=== PATIENT | male | born 1990 | race Caucasian/White ===

== ENCOUNTER 2016-08-08 13:11 | Emergency (ER) | payer OTHER ==
[2016-08-08] MEDS ORDERED: OXYCODONE-ACETAMINOPHEN 5-325 MG TABLET PO ONE (14:16)
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
[2016-08-08 15:53] VITALS: BP 121/65
== END 2016-08-08 15:51 | disposition home or self-care (01) ==
LOC: ER 13:11
PROC: 2W38X1Z Immobilization of Right Upper Extremity using Splint (ICD-10-PCS; principal; 2016-08-08)
DX: S40.029A Contusion of unspecified upper arm, initial encounter (principal); S53.401A Unspecified sprain of right elbow, initial encounter; S90.31XA Contusion of right foot, initial encounter; M25.521 Pain in right elbow; M79.671 Pain in right foot; F17.200 Nicotine dependence, unspecified, uncomplicated; X58.XXXA Exposure to other specified factors, initial encounter
CPT/HCPCS: 99284

== ENCOUNTER 2016-08-14 14:37 | Emergency (ER) | payer OTHER ==
[2016-08-14 14:42] VITALS: BP 115/76
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
== END 2016-08-14 15:15 | disposition home or self-care (01) ==
LOC: ER 14:37
DX: M25.521 Pain in right elbow (principal); F17.200 Nicotine dependence, unspecified, uncomplicated
CPT/HCPCS: 99282

== ENCOUNTER 2016-12-20 11:29 | Emergency (ER) | payer OTHER ==
[2016-12-20 11:52] VITALS: BP 132/80
[2016-12-20] MEDS ORDERED: LIDOCAINE 2% VISCOUS SOLN 20 ML UDCUP PO ONE (13:45)
--- NOTE | 2016-12-20 13:50 | ER Document Report ---
HPI - HPI Pain Level: 5 Notes: patient is a 26-year-old male who presents the ED complaining of dental pain to right upper molar #2 for the last 2 days. Patient has not noticed any other obvious abscess or discharge. He still eating and drinking without any difficulties. He has not been set up with a dentist yet. Denies any antibiotic drug allergies or significant past medical history. Denies any headache, fever, neck pain, facial swelling, drooling, hoarseness, URI, sore throat, chest pain, palpitations, syncope, cough, shortness of breath, wheeze, dyspnea, abdominal pain, nausea/vomiting/diarrhea, urinary retention, dysuria, or rash. - ROS Notes: REVIEW OF SYSTEMS: CONSTITUTIONAL : Denies fever, chills, or sweats. Denies recent illness. EENT: see hpi CARDIOVASCULAR: Denies chest pain. Denies palpitations or racing or irregular heart beat. Denies ankle edema. RESPIRATORY: Denies cough, cold, or chest congestion. Denies shortness of breath, difficulty breathing, or wheezing. GASTROINTESTINAL: Denies abdominal pain or distention. Denies nausea, vomiting , or diarrhea. Denies blood in vomitus, stools, or per rectum. Denies black, tarry stools. Denies constipation. GENITOURINARY: Denies difficulty urinating, painful urination, burning, frequency, blood in urine, or discharge. MUSCULOSKELETAL: Denies back or neck pain or stiffness. Denies joint pain or swelling. SKIN: Denies rash, lesions or sores. NEUROLOGICAL: Denies confusion or altered mental status. Denies passing out or loss of consciousness. Denies dizziness or lightheadedness. Denies headache. Denies weakness or paralysis or loss of use of either side. Denies problems with gait or speech. Denies sensory loss, numbness, or tingling. ALL OTHER SYSTEMS REVIEWED AND NEGATIVE. Dictation was performed using [employer] voice recognition software - DERM Skin Color: Normal Past Medical History - Social History Smoking Status: Unknown if Ever Smoked Family History: Reviewed & Not Pertinent Patient has suicidal ideation: No Renal/ Medical History: Denies: Hx Peritoneal Dialysis Surgical Hx: Negative Past Surgical History: Reports: Hx Herniorrhaphy - Immunizations Hx Diphtheria, Pertussis, Tetanus Vaccination: Yes Vertical Provider Document - CONSTITUTIONAL Agree With Documented VS: Yes Notes: PHYSICAL EXAMINATION: GENERAL: Well-appearing, well-nourished and in no acute distress. A&Ox4 HEAD: Atraumatic, normocephalic. EYES: Pupils equal round and reactive to light, extraocular movements intact, sclera anicteric, conjunctiva are normal. ENT: EAC clear b/l. TM's intact b/l without erythema, fluid, or perforation. Nares patent and without discharge. oropharynx clear without exudates. No tonsilar hypertrophy or erythema. Moist mucous membranes. No sinus tenderness. Uvula midline. No palatine shift. No tongue protrusion. No respiratory compromise. Mouth: Poor dentition. + mild decay and mild gingivitis. No obvious abscess or discharge noted. No facial swelling. + tenderness to tooth #2. NECK: Normal range of motion, supple without lymphadenopathy. No rigidity/ meningismus. LUNGS: Breath sounds clear to auscultation bilaterally and equal. No wheezes rales or rhonchi. HEART: Regular rate and rhythm without murmurs, rubs, gallops. NEUROLOGICAL: Cranial nerves grossly intact. Normal speech, normal gait. Normal sensory, motor exams PSYCH: Normal mood, normal affect. SKIN: Warm, Dry, normal turgor, no rashes or lesions noted. - INFECTION CONTROL TRAVEL OUTSIDE OF THE [place] IN LAST 30 DAYS: No - RESPIRATORY O2 Sat by Pulse Oximetry: 100 Course - Re-evaluation Re-evalutation: 12/20/16 13:48 Patient is an afebrile, well-hydrated, 26-year-old male who presents the ED with a toothache, infection versus nerve etiology. Vitals are stable. PE otherwise unremarkable. Low suspicion for any meningitis, sepsis, peritonsillar /pharyngeal abscess, respiratory compromise, Andrew's, temporal arteritis, or other emergent systemic condition at this time. Patient is aware this condition can change from initial presentation and he needs to monitor symptoms closely. I will send him home with a prescription for penicillin and viscous lidocaine to use as directed. Conservative measures otherwise for symptoms. Call to schedule an appointment with a dentist for further evaluation and management. Recheck with your PCM this week as well. Return to the ED with any worsening/concerning symptoms otherwise as reviewed in discharge. Patient is in agreement. - Vital Signs Vital signs: Temp Pulse Resp BP Pulse Ox 99.1 F 61 16 132/80 H 100 12/20/16 11:51 12/20/16 11:51 12/20/16 11:51 12/20/16 11:51 12/20/16 11:51 Discharge - Discharge Clinical Impression: Toothache Condition: Stable Disposition: HOME, SELF-CARE Instructions: Toothache ([facility]), Penicillin V K ([facility]), Dentist Additional Instructions: [place] and floss twice daily Maintain fluid intake Take antibiotics as directed Mouthwash, salt water gargles, peroxide rinse as needed Tylenol/ibuprofen as needed Recheck with PCM this week Call today/tomorrow and schedule an appointment with your dentist for further evaluation Return to the ED with any worsening symptoms and/or development of fever, headache, facial swelling, swelling of lips/tongue/throat, trouble swallowing, drooling, hoarseness, neck pain/stiffness, chest pain, palpitations, syncope, shortness of breath, trouble breathing, abdominal pain, n/v/d, numbness/tingling , or other worsening symptoms that are concerning to you. Prescriptions: Penicillin V Potassium [Penicillin Vk 500 mg Tablet] 500 mg PO BID #20 tablet Forms: Elevated Blood Pressure Referrals: [facility] [Provider Group] - Follow up as needed
== END 2016-12-20 14:21 | disposition home or self-care (01) ==
LOC: ER 11:29
DX: K08.9 Disorder of teeth and supporting structures, unspecified (principal)
CPT/HCPCS: 99282; J3490

== ENCOUNTER 2016-12-26 10:32 | Emergency (ER) | payer OTHER ==
[2016-12-26] MEDS ORDERED: KETOROLAC TROMETHAMINE INJ/PF 30 MG/1 ML SDV IM ONE (11:03)
[2016-12-26] MEDS ORDERED: ONDANSETRON HCL INJ/PF 4 MG/2 ML SDV IM ONE (11:03)
[2016-12-26] MEDS ORDERED: DIPHENHYDRAMINE HCL 50 MG/ML VIAL IM ONE (11:03)
--- NOTE | 2016-12-26 11:04 | ER Document Report ---
HPI - HPI Patient complains to provider of: headache and toothache Pain Level: 5 Context: Patient is a 26-year-old male who returns emergency department complaining of headache. Patient states that he has been treated with penicillin for toothache and has not followed up with a dentist. Patient states he has been having a frontal headache due to the pain around his right eye and came in today for pain control. Denies any history of migraines, trauma states that majority of his headache is in his. Right frontal sinus. Denies any fevers, chills, purulent drainage or swelling. - DERM Skin Color: Normal Past Medical History - Social History Smoking Status: Current Every Day Smoker Chew tobacco use (# tins/day): No Frequency of alcohol use: None Drug Abuse: None Family History: Reviewed & Not Pertinent Renal/ Medical History: Denies: Hx Peritoneal Dialysis Past Surgical History: Reports: Hx Herniorrhaphy - Immunizations Hx Diphtheria, Pertussis, Tetanus Vaccination: Yes Vertical Provider Document - CONSTITUTIONAL Agree With Documented VS: Yes Exam Limitations: No Limitations General Appearance: WD/WN, No Apparent Distress Notes: PHYSICAL EXAM GENERAL: Alert, interacts well. HEAD: Normocephalic, atraumatic. EYES: Pupils equal, round, and reactive to light. Extraocular movements intact. ENT: Evidence of dental decay without any evidence of dental abscess.Oral mucosa moist, tongue midline. Right frontal sinus is tender to palpation without any overlying erythema uvula midline. Airway patent. No evidence of tonsillar enlargement, peritonsillar abscess, retropharyngeal abscess. Or swelling. NECK: Full range of motion. Supple. Trachea midline. LUNGS: Clear to auscultation bilaterally, no wheezes, rales, or rhonchi. No respiratory distress. HEART: Regular rate and rhythm. No murmurs, gallops, or rubs. - INFECTION CONTROL TRAVEL OUTSIDE OF THE [place] IN LAST 30 DAYS: No - RESPIRATORY O2 Sat by Pulse Oximetry: 99 Course - Re-evaluation Re-evalutation: 12/26/16 11:04 Patient is a 26 year old male who presents with the headache for a couple of days. Has responed well to migraine cocktail with complete resolution of his headache. Will perform dental block 12/26/16 12:43 Presentation is most consistent with likely an infected tooth. Airway is patent. Vitals within normal limits. Patient is able swallow without any difficulty. There is no significant facial swelling. Patient will be started on antibiotics and a limited number of pain medications. I've instructed to follow-up with dentistry as earliest ability for definitive management. Return precautions and follow-up recommendations have been discussed at length. - Vital Signs Vital signs: Temp Pulse Resp BP Pulse Ox 98.1 F 103 H 20 125/73 99 12/26/16 10:42 12/26/16 10:42 12/26/16 10:42 12/26/16 10:42 12/26/16 10:42 Discharge - Discharge Clinical Impression: Toothache Condition: Good Disposition: HOME, SELF-CARE Additional Instructions: You have been seen for dental pain. It is very important that you follow-up with a dentist for definitive care. Please return if you develop fever greater than 101, swelling in your face, vomiting, difficulty breathing or swallowing, or any other symptoms that are concerning to you. For pain you should take ibuprofen 600 mg every 6 hours as needed. FOLLOW-UP CARE: You have been referred for follow-up care to the dentists listed below. Call the dentists office for an appointment as you were instructed or within the next two days. If you experience worsening or a significant change in your symptoms, notify the physician immediately or return to the Emergency Department at any time for re-evaluation. [facility] [address] [place], [place] Tuesday mornings, by appointment [facility] [address] [place] [address] [facility] [address] [facility] [address] [facility] ([facility]) [facility] [address] [email or web address] [address] [place] [address] Tuesday- 8:00am to 5:00 pm Will see patients from other [facility]. Charges based on income and family size and accepts Medicare, Medicaid, and Insurances Will pull molars [facility] [id number] Hours of Operation 8:00 am - 4:30 pm weekdays The following dental offices accept Medicaid: [facility] Dr. Banegas Dr. Alvarez Dr. Cervantes Dr. Parra Rivera Tate, Kun, and [place] oral surgery Dr. Gannon ([place]) Dr. Rasheed ([place]) [facility] Drs. Sebastian and Brad ([place]) Dr. Caldera ([place]) [facility] Dr. Tyler ([place]) Drs. Evans and ([place]) Medicaid Care Line Referrals: ONEIDA LUNDBERG MD [Primary Care Provider] - Follow up as needed
[2016-12-26] MEDS ORDERED: BUPIVACAINE HCL 0.5 % INJ/PF 30 ML SDV INJ ONE (12:10)
[2016-12-26 13:10] VITALS: BP 137/84
== END 2016-12-26 13:00 | disposition home or self-care (01) ==
LOC: ER 10:32
DX: K08.9 Disorder of teeth and supporting structures, unspecified (principal); R51 Headache; F17.200 Nicotine dependence, unspecified, uncomplicated
CPT/HCPCS: 99282; J1200; J1885; J2405